=== PATIENT | male | born 1985 | race African-American/Black ===

== ENCOUNTER 2016-12-04 18:21 | Inpatient (IN) | payer OTHER ==
--- NOTE | ~2016-12-04 | EKG ---
PATIENT: BRENNA FORBES UNIT #: [id number] Ventricular Rate: 112 BPM Atrial Rate: 112 BPM P-R Interval: 150 ms QRS Duration: 74 ms Q-T Interval: 308 ms QTC Calculation(Bezet): 420 ms P [place]: 75 degrees Calculated R [place]: 85 degrees Calculated T [place]: 51 degrees Diagnosis Line: Sinus tachycardia Diagnosis Line: Otherwise normal ECG Diagnosis Line: No previous ECGs available Diagnosis Line: Confirmed by AISHWARYA BUCHANAN MD ([id number]) on Diagnosis Line: 12/06/2016 10:21:30 PM INTERPRETING MD: CESARIO
--- NOTE | ~2016-12-04 | CT15 ---
[facility] A Service of [facility] RADIOLOGY TEXT RESULTS PATIENT: BRENNA FORBES LOCATION: [facility] 564-01 : 85 UNIT #: [id number] AGE: [address]: Courtney Galvez MD SEX: M ORDER DR: [id number] [place] [id number] [facility]. [place], [place] [address] [id number] I MR#: [id number] Acc #: [id number] NAME: BRENNA FORBES : 1985 SEX: M STUDY DATE/TIME: 12/04/2016 17:32 UNIT: [facility] ROOM: [facility] STUDY DESCRIPTION: CT Angio Chest Attending Physician: Dieter Cortez M.D. Ordering Physician: Eliane Sargent M.D. Primary Care Physician: No Primary Care Physician MEDICAL IMAGING REPORT This report is preliminary unless electronic signature is present EXAM CT angiogram of the chest INDICATION Severe abdominal pain, hypoglycemia and seizure today. TECHNIQUE Axial CT images were obtained from the thoracic inlet through the symphysis pubis following the administration of intravenous contrast material following this 3-D reformatted images were obtained. This CT exam was performed with one or more of the following radiation dose reduction techniques: automatic control, adjustment of mA and/or kV according to patient size, and iterative reconstruction. FINDINGS Thoracic aorta measures within normal size limits. There is no evidence of dissection. Patient does have a common origin of the brachiocephalic artery and left common carotid artery which is a normal anatomic variant. There is really no significant atherosclerotic plaque. There is no pleural or pericardial effusion. Celiac axis is widely patent as is the superior mesenteric artery. Single renal arteries are identified bilaterally. There is no evidence of dissection involving the abdominal aorta and it is also normal in caliber. Inferior mesenteric artery is widely patent. No flow-limiting stenosis or significant atherosclerotic disease of the patient's common internal or external iliac arteries is identified. The thyroid gland trachea and esophagus appear unremarkable. Mediastinal and hilar lymph nodes do not appear pathologically enlarged. The patient has some dependent atelectasis but the lungs are otherwise clear. [facility] A Service of [facility] RADIOLOGY TEXT RESULTS PATIENT: BRENNA FORBES LOCATION: [facility] 564-01 : 85 UNIT #: [id number] AGE: [address]: Courtney Galvez MD SEX: M ORDER DR: I think the patient probably does have diffuse hepatic steatosis, gallbladder, spleen, stomach, and proximal small bowel all appear normal as are the adrenal glands pancreas and kidneys. No pneumatosis or free air is seen. Images through the abdomen are degraded by some motion artifact. Urinary bladder is within normal limits. A few dystrophic calcifications are seen within the prostate gland. Bowel enhances normally. No free fluid or adenopathy is seen within the abdomen or pelvis. Review of bony windows does not demonstrate any aggressive osseous abnormalities. IMPRESSION No acute intrathoracic or intraabdominal process is identified. This patient's aorta is normal in caliber and there is no evidence of dissection. There is no evidence of acute pulmonary thromboembolus, lungs appear clear with the exception of some mild dependent atelectasis and the bowel enhances normally. Please see the body of the report for any other additional incidental findings Dictated by... Mikaela Israel M.D. THIS IS AN ELECTRONICALLY VERIFIED REPORT Mikaela Israel M.D. at 12/07/2016 1:18 PM AFF/rnr TD: 12/04/2016 23:18 JOB #: [id number] MEDICAL IMAGING REPORT COPY
--- NOTE | ~2016-12-04 | ST ---
Unit #: [id number] #: [id number] Patient: BRENNA FORBES [id number] [address] [address] [id number] I MR#: [id number] NAME: BRENNA FORBES : 1985 SEX: M STUDY DATE/TIME: 12/06/2016 UNIT: [facility] ROOM: 564 STUDY DESCRIPTION: Stress test Attending Physician: Dieter Cortez M.D. Primary Care Physician: No Primary Care Physician CARDIOLOGY REPORT EXAM Cardiolite stress test. FINDINGS Baseline EKG shows normal sinus rhythm with a rate of 82 beats per minute, otherwise, normal. The patient exercised on a treadmill using Willy protocol for 11 minutes and 54 seconds achieving a workload of 12.10 METs. Eighty-six percent of the maximum age-predicted heart rate was reached at 164 beats per minute with a hypertensive blood pressure response. The patient had no complaints of chest pain, palpitations or dizziness. EKG during exercise showed no ST-T wave abnormalities, was noted for occasional premature atrial complex. The test was terminated secondary to achieving target heart rate. IMPRESSION 1. Functional class one with a workload of 12.10 METs, had a fairly good exercise tolerance. 2. Eighty-six percent of the maximum age-predicted heart rate was reached at 164 beats per minute with a hypertensive blood pressure response. 3. The patient had no complaints of chest pain, palpitations or dizziness. 4. EKG during exercise showed no ST-T wave abnormalities. The patient was noted for occasional premature atrial complex. 5. Cardiolite was injected at peak exercise with radionuclide test pending. 6. Please correlate these results with nuclear images. Dictated by... Barbara Sarabia/sherie TD: 12/06/2016 18:13 JOB #: [id number] Unit #: [id number] #: [id number] Patient: BRENNA FORBES CARDIOLOGY REPORT X Nestor Sheppard APRN CARDIOLOGY REPORT
--- NOTE | ~2016-12-04 | CO ---
Unit #: [id number] #: [id number] Patient: BRENNA FORBES [id number] [address] [place], [place] [address] [id number] I MR#: [id number] NAME: BRENNA FORBES ROOM: 564 Age: 31 Sex: M Admission Date: 12/04/2016 : 1985 Attending Physician: Dieter Cortez M.D. CONSULTATION REPORT REASON FOR CONSULTATION Chest pain. HISTORY OF PRESENT ILLNESS This is a 31-year-old male who presented to the emergency room with a complaint of abdominal pain and chest pain. He has a history of polysubstance abuse, where he took himself off liquid, codeine, Percocet, and Lortab, last Wednesday. He has not felt well for the past 2 days and around all day yesterday. Last night, he developed abdominal discomfort with epigastric pain and bilateral anterior chest pain. He describes that this is a dull ache, that is nonradiating to the neck, arm, or jaw. He felt his muscles were achy. He denies shortness of breath, but report nausea. No vomiting or diarrhea. He did not eat and drink for the past 2 days. He had no dizziness, syncope, or near syncope. He came to the emergency room for evaluation, where he was found to have an elevated troponin of 0.13 and that has now peaked at 0.61. CK total elevated at 13,115. His EKG shows no acute ischemic changes. He has risk factors for ischemic heart disease includes nicotine abuse. He has been told to have hypertension while he was incarcerated a few years back. He denies hyperlipidemia, diabetes mellitus, or family history of premature coronary artery disease. He states he is reasonably active where he runs and plays basketball without symptoms. No prior cardiac testing. PAST MEDICAL HISTORY 1. Polysubstance abuse. 2. Active smoker. PAST SURGICAL HISTORY Questionable cyst, removed. SOCIAL HISTORY The patient lives with his mother. He is a manual lathe machinist by trade, not currently working. He smokes 3 black and mild cigars a day. Denies IV drug use. Admits to polysubstance abuse with Lortab, Percocet, and liquid codeine. Denies alcohol use. FAMILY HISTORY Mother is currently living well. Father's history is unknown. ALLERGIES No known drug allergies. HOME MEDICATIONS Unit #: [id number] #: [id number] Patient: BRENNA FORBES No current medications. REVIEW OF SYSTEMS CONSTITUTIONAL: Positive for weakness and fatigue. Reports no weight gain or weight loss. Has generalized body aches. HEENT: No headache. No vision changes. No difficulty with swallowing. Negative for dizziness. CARDIOVASCULAR: Has chest pain as described in the HPI. Denies palpitations. No paroxysmal nocturnal dyspnea or orthopnea. Denies syncope or near syncope. RESPIRATORY: Negative for dyspnea, cough, or hemoptysis. GASTROINTESTINAL: Positive for an abdominal pain. No constipation, melena, or hematemesis. EXTREMITIES: Negative for lower extremity edema. PHYSICAL EXAMINATION VITAL SIGNS: Blood pressure 125/74, heart rate 89, temperature 99.0 from 102.1. BMI of 23. GENERAL: This is a 31-year-old small-framed, male, who is in no acute distress. NEUROLOGIC: He is awake, alert, without focal weaknesses. NECK: Trachea is midline. No thyromegaly. No lymphadenopathy. No jugular distention. HEART: S1, S2. Heart sounds are normal. No murmurs. No rubs or clicks. Regular rate and rhythm. LUNGS: Clear to auscultation. No rales, rhonchi, or wheezing. ABDOMEN: Soft and nontender with bowel sounds are present. No organomegaly. EXTREMITIES: Without leg edema. SKIN: Warm and dry. DIAGNOSTIC STUDIES LABORATORY RESULTS: Glucose 94, BUN 17, creatinine 1.1, sodium 141, potassium 4.1, AST 153, ALT 44, CK total 13,115, CK-MB 64.2, MB index 0.5. Troponin 0.13 to 0.22 to 0.61 to 0.34. BNP 64. TSH 0.28, free T4 is 0.69. Alcohol less than 5. White count 19.4 from 29.1, hemoglobin 14.8, hematocrit 45.0, and platelet count 223. IMAGING STUDIES: 1. CTA of the chest shows mild dependent atelectasis, otherwise normal. 2. CT of the head is normal. CARDIOVASCULAR STUDIES: Electrocardiogram, normal sinus rhythm with a rate of 93 beats per minute, otherwise normal. IMPRESSION 1. Questionable sepsis. 2. Leukocytosis. 3. Recurrent fever. 4. Elevated troponin. 5. Rhabdomyolysis. 6. Questionable muscle spasms/seizure. PLAN Cardiology was consulted for chest pain. The patient has an elevated troponin, but normal troponin of 0.05 six hours after onset of pain which suggests a noncardiac ischemic etiology of troponin leak. Next, we will schedule for exercise Cardiolite stress test in a.m. Next, heparin drip will be discontinued. We will start on Lovenox. Await 2D echocardiogram Unit #: [id number] #: [id number] Patient: BRENNA FORBES for left ventricular systolic function. Dictated by... Judie SarabiaPSangitaRTodd for Óscar Hernandes/vivienne TD: 12/05/2016 19:39 JOB #: [id number] CC: Daniel Abernathy M.D. CONSULTATION REPORT X Nestor Sheppard APRN X CONSULTATION REPORT
--- NOTE | ~2016-12-04 | HP ---
Unit #: [id number] #: [id number] Patient: BRENNA FORBES [id number] [address] [place], [place] [address] [id number] I MR#: [id number] NAME: BRENNA FORBES ROOM: 564 Age: 31 Sex: M Admission Date: 12/04/2016 : 1985 Attending Physician: Dieter Cortez M.D. Primary Care Physician: Primary Care Physician No HISTORY AND PHYSICAL CHIEF COMPLAINT Abdominal pain, detox from Percocet and codeine. HISTORY OF PRESENT ILLNESS This is a 31-year-old gentleman, who has been found on the floor by girlfriend, as per girlfriend, who is at the bedside, as she found him on the floor, shaking, foam coming from his mouth and EMS was called, and the patient was brought to the emergency room. He was found to be tachycardic, 143, temperature febrile, 102.1, blood pressure 125/87. On further workup on the evaluation found to be white count 29,000, ammonia level 348, and AST 66, ALT 72, and increased troponin 0.22, and after questioning he is now alert and awake. He is telling me that he bought Percocet tablets and codeine syrup from the street and he has been using for the last three months, not using since Wednesday and today he said that he had been having some hallucinations, but denied chest pain, and he has also been having abdominal pain earlier today. PAST MEDICAL HISTORY Unremarkable. PAST SURGICAL HISTORY Unremarkable. HOME MEDICATIONS He does not take any medication. SOCIAL HISTORY He smokes one pack day. He used codeine and Percocet tablets from the street, buy from the streets. ALLERGIES No known drug allergies. PHYSICAL EXAMINATION GENERAL: Middle-aged male lying in the bed comfortably, currently not in any distress. He is alert, awake, and oriented x2, at this time, not in any distress. VITAL SIGNS: His current vitals are the following, temperature is 100.2, heart rate 143, repeat one is 110, blood pressure 125/87. HEENT EXAMINATION: Pupils equal reactive to light and accommodation. Head: Normocephalic and atraumatic. NECK: Supple. No jugular venous distention. HEART: S1 and S2, regular rate and rhythm, and tachycardia. ABDOMEN: Soft, nontender, and nondistended. Bowel sounds are positive. Unit #: [id number] #: [id number] Patient: BRENNA FORBES EXTREMITIES: Inspection normal. No cyanosis, no clubbing, or no edema. NEUROLOGIC: No focal neurologic deficit. DIAGNOSTIC STUDIES LABORATORY: Laboratory workup is the following, his troponin 0.13, ABG, pH 7.32, O2 91, CO2 30. Ammonia level is 348. INR is 1. White count is 29, hemoglobin is 17, and hematocrit is 53, platelets 270, BNP 64. Sodium 140, potassium 3.7, glucose 69, BUN 17, creatinine 1.8, AST 66, ALT 72, CK total 1860, lipase 19, troponin 0.22. Urinalysis is unremarkable. Lactic acid 2.6. Urine drug screen positive for benzodiazepines and opiates. IMAGING: CT chest and CT of the abdomen is unremarkable. ASSESSMENT/PLAN 1. Opiate withdrawal. 2. Mild rhabdomyolysis. 3. Leukocytosis. 4. Increased troponin, will rule out myocarditis, will schedule 2D echo and ask cardiology to evaluate. 5. Ammonia level. 6. Abnormal LFT. 7. DVT prophylaxis, place the patient on SCDs. Dictated by Óscar Garrett/bailee TD: 12/05/2016 10:38 JOB #: [id number] HISTORY AND PHYSICAL X X HISTORY AND PHYSICAL
--- NOTE | ~2016-12-04 | EKG ---
PATIENT: BRENNA FORBES UNIT #: [id number] Ventricular Rate: 84 BPM Atrial Rate: 84 BPM P-R Interval: 154 ms QRS Duration: 80 ms Q-T Interval: 336 ms QTC Calculation(Bezet): 397 ms P [place]: 65 degrees Calculated R [place]: 63 degrees Calculated T [place]: 27 degrees Diagnosis Line: Normal sinus rhythm Diagnosis Line: Normal ECG Diagnosis Line: When compared with ECG of 05-DEC-2016 05:50, Diagnosis Line: (unconfirmed) Diagnosis Line: No significant change was found Diagnosis Line: Confirmed by AISHWARYA BUCHANAN MD ([id number]) on Diagnosis Line: 12/06/2016 10:44:11 PM INTERPRETING MD: CESARIO
--- NOTE | ~2016-12-04 | DS ---
Unit #: [id number] #: [id number] Patient: BRENNA PERALES [id number] [address] [address] [id number] I MR#: [id number] NAME: BRENNA PERALES ROOM: 564 Age: 31 Sex: M Admission Date: 12/04/2016 : 1985 Discharge Date: 12/07/2016 Attending Physician: Courtney Galvez M.D. Primary Care Physician: No Primary Care Physician DISCHARGE SUMMARY PRINCIPAL DIAGNOSES 1. Acute kidney injury secondary to rhabdomyolysis. Discharge creatinine 0.7. 2. Rhabdomyolysis, nontraumatic. 3. Elevated troponin secondary to rhabdomyolysis. 4. Severe dehydration. 5. Toxic metabolic encephalopathy secondary to polysubstance withdrawal. 6. Cocaine and opiate abuse with subsequent withdrawal. 7. Hyperammonemia, resolved. 8. Acute diastolic congestive heart failure without exacerbation. 9. Hypertension. 10. Reactive leukocytosis. 11. Transaminitis secondary to acute rhabdomyolysis. CONSULTANTS Dr. Abernathy, cardiology. DIAGNOSTIC STUDIES CARDIOVASCULAR: Cardiolite stress test, which was negative. IMAGING: CT of the head without contrast on December 04, 2016, which was negative. CT angiogram of the chest on December 04, 2016 with no acute abnormality. No evidence of PE. Bilateral lower extremity venous Doppler, which was negative for DVT. Chest x-ray on December 05, 2016 which was negative. CLINICAL HISTORY AND HOSPITAL COURSE Mr. Perales is a 31-year-old male brought to the emergency department confused and found down on the floor at home. The patient was found to have a temperature of 102.1 upon presentation and was also tachycardic. He was also found to have an elevated white blood cell count of 29,000 and an ammonia level of 348, although it was questionable whether this is accurate. CPK level was initially 1,860. The patient was subsequently admitted. The patient was placed on IV hydration, and mental status subsequently resolved. White blood cell count also dramatically went down, and there was no source of infection ever found. There were concerns per EMS that the patient may have had seizure, and he received Keppra in the emergency department, but he has had no seizure-like activity here, and I suspect Unit #: [id number] #: [id number] Patient: BRENNA PERALES this was not seizure, and no long-term seizure medication will be given. In regard to the patient's elevated CPK, again, initial readings were approximately 1,800 but then dramatically increased to as high as 13,000. The patient was maintained on IV fluids, and on day of discharge CK still remains elevated at 6,100, but the patient is improving rather rapidly and agrees to push fluids aggressively at home. Upon presentation the patient also was found to have an elevated troponin level of 0.22. It peaked as high as 0.[address] Abernathy was consulted, and the patient was placed on beta-enoch and therapeutic Lovenox. He underwent stress test, the exercise portion of which is negative, and the Cardiolite portion is currently pending but I believe is negative. The patient is awake, alert, has had no more fever. No signs of infection and clinically looks significantly improved. He will be discharged home. DISCHARGE CONDITION Stable. DISCHARGE STATUS Discharge to home. DISCHARGE MEDICATIONS Norvasc 5 mg p.o. daily. DISCHARGE INSTRUCTIONS Patient was instructed to really push fluids at home for the next 2-3 days. He can increase his activity as tolerated, to refrain from any further illicit drug use. FOLLOW-UP Patient will establish with a primary care physician and follow up in 2-3 weeks. He needs a repeat evaluation of blood pressure at that time. Dictated by... Courtney Galvez M.D. ANA/vandana TD: 12/08/2016 11:50 JOB #: [id number] DISCHARGE SUMMARY X Courtney Galvez MD X DISCHARGE SUMMARY
--- NOTE | ~2016-12-04 | EKG ---
PATIENT: BRENNA FORBES UNIT #: [id number] Ventricular Rate: 100 BPM Atrial Rate: 100 BPM P-R Interval: 172 ms QRS Duration: 92 ms Q-T Interval: 326 ms QTC Calculation(Bezet): 420 ms P [place]: 76 degrees Calculated R [place]: 89 degrees Calculated T [place]: 60 degrees Diagnosis Line: Sinus rhythm Diagnosis Line: Nonspecific ST abnormality consider pericarditis Diagnosis Line: Abnormal ECG Diagnosis Line: When compared with ECG of 04-DEC-2016 16:57, Diagnosis Line: (unconfirmed) Diagnosis Line: T wave amplitude has decreased in Anterior leads Diagnosis Line: Confirmed by AISHWARYA BUCHANAN MD ([id number]) on Diagnosis Line: 12/06/2016 10:23:46 PM INTERPRETING MD: CESARIO
--- NOTE | ~2016-12-04 | EKG ---
PATIENT: BRENNA FORBES UNIT #: [id number] Ventricular Rate: 93 BPM Atrial Rate: 93 BPM P-R Interval: 148 ms QRS Duration: 76 ms Q-T Interval: 338 ms QTC Calculation(Bezet): 420 ms P [place]: 65 degrees Calculated R [place]: 53 degrees Calculated T [place]: 37 degrees Diagnosis Line: Normal sinus rhythm Diagnosis Line: Normal ECG Diagnosis Line: When compared with ECG of 04-DEC-2016 18:31, Diagnosis Line: (unconfirmed) Diagnosis Line: ST less elevated in Lateral leads Diagnosis Line: T wave amplitude has increased in Anterior leads Diagnosis Line: Confirmed by AISHWARYA BUCHANAN MD ([id number]) on Diagnosis Line: 12/06/2016 10:38:21 PM INTERPRETING MD: CESARIO
--- NOTE | ~2016-12-04 | TH ---
Unit #: [id number] #: [id number] Patient: BRENNA FORBES [id number] [address] [address] [id number] I MR#: [id number] NAME: BRENNA FORBES : 1985 SEX: M STUDY DATE/TIME: 12/07/2016 UNIT: [facility] ROOM: 564 STUDY DESCRIPTION: Attending Physician: Courtney Galvez M.D. Primary Care Physician: No Primary Care Physician CARDIOLOGY REPORT EXAM Exercise Cardiolite stress test, nuclear portion. PROCEDURE Using technetium 99m labeled Cardiolite, rest and stress SPECT images were obtained. Multiple SPECT images were obtained in various views including horizontal and vertical long axis and short axis views of the left ventricle. Images were obtained by gated SPECT method. The patient was administered 9.9 mCi of Cardiolite at rest. The patient was administered 25.3 mCi of Cardiolite at peak exercise. Total exercise time is 11 minutes and 54 seconds. On the stress images, there is normal perfusion noted. The rest images showed normal perfusion. Comparing rest and stress images, there is no stress-induced ischemia noted. The left ventricular ejection fraction is calculated to be 61%. There is no focal wall motion abnormality seen. CONCLUSION 1. No stress-induced ischemia noted. 2. The left ventricular ejection fraction is calculated to be 61%. 3. There is no focal wall motion abnormality seen. 4. Normal exercise Cardiolite stress test. Dictated by... Óscar Goodson TD: 12/07/2016 16:24 JOB #: [id number] CARDIOLOGY REPORT X Ct Lilly MD <ELECTRONICALLY SIGNED> 05/01/17 1428 CARDIOLOGY REPORT
--- NOTE | ~2016-12-04 | CR63 ---
[facility] A Service of [facility] RADIOLOGY TEXT RESULTS PATIENT: BRENNA FORBES LOCATION: [facility] 564-01 : [birth year] UNIT #: [id number] AGE: [address]: Dieter Cortez MD SEX: M ORDER DR: [id number] [facility] [address] [facility]. [place], [place] [address] [id number] I MR#: [id number] Acc #: [id number] NAME: BRENNA FORBES : 1985 SEX: M STUDY DATE/TIME: 12/05/2016 10:28 UNIT: [facility] ROOM: [facility] STUDY DESCRIPTION: CR Chest 2 View Attending Physician: Dieter Cortez M.D. Ordering Physician: Daniel Abernathy M.D. Primary Care Physician: Primary Care Physician No MEDICAL IMAGING REPORT This report is preliminary unless electronic signature is present EXAM PA and lateral chest 2 views date of study 12/05/2016 HISTORY Short of air since last night. FINDINGS PA and lateral examination of the chest upright shows a good expansion of the parenchyma with a normal distribution of the pulmonary vascularity. There is no indication of congestion, effusion, infiltrate, tumor, or nodular density. The pleural reflections and diaphragmatic contours are normal. The cardiac silhouette and mediastinal anatomy is within normal limits. IMPRESSION Normal chest. Dictated by... Cam Lowery M.D. THIS IS AN ELECTRONICALLY VERIFIED REPORT Cam Lowery M.D. at 12/06/2016 9:52 AM JARRETT/flex TD: 12/05/2016 14:22 JOB #: [id number] MEDICAL IMAGING REPORT COPY
--- NOTE | ~2016-12-04 | US84 ---
[id number] [facility] [address] [place], [place] [address] [id number] MR#: [id number] Acc #: [id number] NAME: BRENNA FORBES : 1985 SEX: M STUDY DATE/TIME: 12/05/2016 10:07 UNIT: [facility] ROOM: 564 STUDY DESCRIPTION: US LE Veins Complete Jose Cruz Stdy Attending Physician: Dieter Cortez M.D. Ordering Physician: Dede Kaufman M.D. MEDICAL IMAGING REPORT This report is preliminary unless electronic signature is present EXAM Venous Doppler ultrasound, both legs, 12/05/2016. HISTORY 31-year-old male with 3-day history of shortness of air. Evaluation for lower extremity DVT due to consideration of pulmonary embolism. TECHNIQUE Venous ultrasound examination of both lower extremities was performed using grayscale, spectral Doppler and color flow Doppler imaging. FINDINGS The examination is negative. There is no evidence of deep venous thrombus from the groin to the lower calf bilaterally. Visualized greater saphenous veins are also patent. IMPRESSION Negative examination. No evidence of lower extremity deep venous thrombosis. Dictated by... Ricky Castellanos M.D. THIS IS AN ELECTRONICALLY VERIFIED REPORT Ricky Castellanos M.D. at 12/05/2016 3:01 PM JOAN/gema TD: 12/05/2016 14:52 JOB #: [id number] MEDICAL IMAGING REPORT COPY
--- NOTE | ~2016-12-04 | CT71 ---
[facility] A Service of [facility] RADIOLOGY TEXT RESULTS PATIENT: BRENNA FORBES LOCATION: [facility] [id number] : [birth year] UNIT #: [id number] AGE: [address]: Dieter Cortez MD SEX: M ORDER DR: [id number] [facility]. [place], [place] [address] [id number] MR#: [id number] Acc #: [id number] NAME: BRENNA FORBES : 1985 SEX: M STUDY DATE/TIME: 12/04/2016 17:23 UNIT: [facility] ROOM: [facility] STUDY DESCRIPTION: CT Head Wo Contrast Attending Physician: Dieter Cortez M.D. Ordering Physician: Eliane Sargent M.D. Primary Care Physician: No Primary Care Physician MEDICAL IMAGING REPORT This report is preliminary unless electronic signature is present EXAM CT head, noncontrast, 12/04/2016. HISTORY A 31-year-old male in the ED with acute mental status changes after a reported seizure. Hypoglycemia. Possible narcotic withdrawal. He also notes severe abdomen pain. TECHNIQUE This CT exam was performed with one or more of the following radiation dose reduction techniques: automatic exposure control, adjustment of mA and/or kV according to patient size, and iterative reconstruction. CT examination of the head without IV contrast. FINDINGS The examination is negative. No evidence of intracranial hemorrhage, mass, mass effect, cerebral edema, hydrocephalus or additional abnormality. IMPRESSION Negative noncontrast head CT. Dictated by... Ricky Castellanos M.D. THIS IS AN ELECTRONICALLY VERIFIED REPORT Ricky Castellanos M.D. at 12/05/2016 3:01 PM JOAN/weston TD: 12/04/2016 23:27 JOB #: [id number] [facility] A Service of [facility] RADIOLOGY TEXT RESULTS PATIENT: BRENNA FORBES LOCATION: [facility] : [birth year] UNIT #: [id number] AGE: [address]: Dieter Cortez MD SEX: M ORDER DR: MEDICAL IMAGING REPORT COPY
[2016-12-04 16:48] LABS: BASOPHIL# 0.1 X10e3 (0-0.3); BASOPHIL% 0.3 % (0-2.5); HEMATOCRIT 53.3 % (38.0-50.0); HEMOGLOBIN 17.2 gm/dL (13.0-16.0); LYMPHOCYTE# 2.2 X10e3 (1.0-3.5); LYMPHOCYTE% 7.6 % (17.0-45.0); MEAN CELL VOLUME 88.5 FL (83-96); MEAN CORPUSCULAR HEMOGLOBIN 28.5 PG (28-34); MEAN CORPUSCULAR HGB CONC 32.2 g/dL (30-36); MEAN PLATELET VOLUME 7.4 FL (6.5-11.5); MONOCYTE# 2.3 X10e3 (0-1.0); MONOCYTE% 7.9 % (3.0-12.0); NEUTROPHIL# 24.5 X10e3 (1.5-7.1); NEUTROPHIL% 84.2 % (40-75); PLATELET COUNT 270 X10e3 (140-420); RED BLOOD COUNT 6.02 X10e (3.90-5.60); RED CELL DISTRIBUTION WIDTH 14.5 % (11.0-15.5); WHITE BLOOD COUNT 29.1 X10e3 (4.0-10.5)
[2016-12-04 16:52] LABS: POC - CKMB 21.9 ng/mL (0.0-7.9); POC - TROPONIN 0.13 ng/mL (<=0.05)
[2016-12-04 17:00] LABS: ARTERIAL BLD GAS O2 SATURATION 94.4 % (90.0-100.0); ARTERIAL BLOOD GAS CARBOXY HB 0.3 %sat (0.0-9.0); ARTERIAL BLOOD GAS HCO3 15.7 mmol/L; ARTERIAL BLOOD GAS MET HB 1.1 %sat (0.0-2.0); ARTERIAL BLOOD GAS PCO2 30.3 mmHg (35.0-45.0); ARTERIAL BLOOD GAS PO2 91.5 mmHg (80.0-100); ARTERIAL BLOOD GAS pH 7.322 (7.350-7.450)
[2016-12-04 17:01] LABS: ARTERIAL BLOOD GAS ALLEN TEST NORMAL; ARTERIAL BLOOD GAS ART SITE LEFT RADIAL; ARTERIAL BLOOD GAS DELIVERY NASAL CANNULA; ARTERIAL DRAW? YES
[2016-12-04 17:02] LABS: PARTIAL THROMBOPLASTIN TIME 26.1 SECONDS (23.5-31.3); PROTHROMBIN TIME (PATIENT) 10.5 SECONDS (9.6-11.5)
[2016-12-04 17:20] LABS: DIFF IND YES
[2016-12-04 17:23] LABS: DIFFERENTIAL COMMENT N; PLATELET ESTIMATE NORMAL (NORMAL); RBC NORMAL YES
[2016-12-04 17:35] LABS: POC - CREATININE 1.24 mg/dL (0.64-1.27); POC - GFR >60.0 mL/min (>60)
[2016-12-04 18:04] LABS: ALBUMIN SERUM 5.5 g/dL (3.5-5.0); ALCOHOL BLOOD <5 mg/dL (0); ALKALINE PHOSPHATASE 94 U/L (32-92); ALT (SGPT) 72 U/L (10-40); AST (SGOT) 66 U/L (10-42); BILIRUBIN, DIRECT 0.1 mg/dL (0.0-0.2); BILIRUBIN,INDIRECT 0.9 mg/dL (0.0-0.9); BLOOD UREA NITROGEN 17 mg/dL (9-23); BUN/CREATININE RATIO 9.44; CALCIUM SERUM 10.3 mg/dL (8.4-10.2); CARBON DIOXIDE 11 mmol/L (22-31); CHLORIDE 101 mmol/L (100-111); CPK (CREATINE PHOSPHOKINASE) 1860 IU/L (36-174); CREATININE SERUM 1.8 mg/dL (0.6-1.4); GLOM FILT RATE Estimated 56.9 mL/min (>60); GLUCOSE FASTING 69 mg/dL (70-110); LIPASE 19 U/L (22-51); POTASSIUM 3.7 mmol/L (3.5-5.1); PROTEIN TOTAL SERUM 8.9 g/dL (6.0-8.3); SODIUM 140 mmol/L (135-145)
[2016-12-04 18:06] LABS: POC - TROPONIN 0.22 ng/mL (<=0.05)
[2016-12-04 18:15] LABS: URINE SOURCE CLEAN CATCH
[~2016-12-04 18:21] MED LIST: FIORICET 50-321 EACH PO
[2016-12-04 18:33] LABS: URINE APPEARANCE CLEAR; URINE BILIRUBIN NEG (NEG); URINE BLOOD 3+ (NEG); URINE COLOR YELLOW; URINE GLUCOSE NEG (NEG); URINE KETONE 2+ (NEG); URINE LEUKOCYTE ESTERASE NEG (NEG); URINE NITRATE NEG (NEG); URINE PH 5.5 (5-8); URINE PROTEIN 3+ (NEG); URINE SPECIFIC GRAVITY 1.025 (1.003-1.035); URINE UROBILINOGEN 0.2 MG/DL (NEG)
[2016-12-04 18:35] LABS: URBCS1 AUWI 100-200 /[HPF] (0-2); URINE BACTERIA AUWI NEG (NEGATIVE); URINE SQUAMOUS EPITHELIAL CELL NONE SEEN /[HPF]; UWBCS1 AUWI 0-2 (0-5)
[2016-12-04 18:42] LABS: CULTURE INDICATED? NO; URINE YEAST PRESENT
[2016-12-04 18:43] LABS: AMPHETAMINE NEG (NEG); BARBITURATES NEG (NEG); BENZODIAZEPINES POS (NEG); COCAINE NEG (NEG); MARIJUANA NEG (NEG); OPIATES POS (NEG); TRICYCLIC ANTIDEPRESSANTS NEG (NEG); U METHADONE NEG (NEG)
[2016-12-04] MEDS ORDERED: NO MEDICATIONS (19:20)
[2016-12-05 00:34] LABS: %MB 0.5 % (0.0-4.0); MB 57.3 ng/ml
[2016-12-05 06:32] LABS: BASOPHIL% 0.2 % (0-2.5); LYMPHOCYTE# 2.6 X10e3 (1.0-3.5); LYMPHOCYTE% 13.3 % (17.0-45.0); MEAN CELL VOLUME 87.8 FL (83-96); MEAN CORPUSCULAR HEMOGLOBIN 28.9 PG (28-34); MEAN CORPUSCULAR HGB CONC 32.9 g/dL (30-36); MEAN PLATELET VOLUME 7.2 FL (6.5-11.5); MONOCYTE# 2.3 X10e3 (0-1.0); MONOCYTE% 11.8 % (3.0-12.0); NEUTROPHIL# 14.5 X10e3 (1.5-7.1); NEUTROPHIL% 74.7 % (40-75); PLATELET COUNT 223 X10e3 (140-420); RED BLOOD COUNT 5.12 X10e (3.90-5.60); RED CELL DISTRIBUTION WIDTH 14.2 % (11.0-15.5); WHITE BLOOD COUNT 19.4 X10e3 (4.0-10.5)
[2016-12-05 06:33] LABS: DIFF IND NO; HEMOGLOBIN 14.8 gm/dL (13.0-16.0)
[2016-12-05 07:57] LABS: ALKALINE PHOSPHATASE 67 U/L (32-92); ALT (SGPT) 44 U/L (10-40); AST (SGOT) 153 U/L (10-42); BILIRUBIN,TOTAL 0.9 mg/dL (0.2-2.0); BLOOD UREA NITROGEN 17 mg/dL (9-23); BUN/CREATININE RATIO 15.45; CARBON DIOXIDE 18 mmol/L (22-31); CHLORIDE 113 mmol/L (100-111); CREATININE SERUM 1.1 mg/dL (0.6-1.4); GLOM FILT RATE Estimated ABOVE60 mL/min (>60); GLUCOSE FASTING 94 mg/dL (70-110); POTASSIUM 4.1 mmol/L (3.5-5.1); PROTEIN TOTAL SERUM 6.9 g/dL (6.0-8.3); SODIUM 141 mmol/L (135-145)
[2016-12-05 07:58] LABS: CK TOTAL 13115 IU/L (36-174)
[2016-12-05 08:15] LABS: %MB 0.5 % (0.0-4.0); MB 64.2 ng/ml
[2016-12-05 10:03] LABS: FREE T3 2.3 pg/mL (2.5-3.9)
[2016-12-05 10:05] LABS: FREE THYROXIN (T4) 0.69 ng/dL (0.58-1.64)
[2016-12-06 05:32] LABS: HEMATOCRIT 43.3 % (38.0-50.0); HEMOGLOBIN 14.1 gm/dL (13.0-16.0); MEAN CELL VOLUME 87.6 FL (83-96); MEAN CORPUSCULAR HEMOGLOBIN 28.6 PG (28-34); MEAN CORPUSCULAR HGB CONC 32.6 g/dL (30-36); MEAN PLATELET VOLUME 7.2 FL (6.5-11.5); RED BLOOD COUNT 4.94 X10e (3.90-5.60); RED CELL DISTRIBUTION WIDTH 14.3 % (11.0-15.5)
[2016-12-06 06:53] LABS: ALBUMIN SERUM 3.7 g/dL (3.5-5.0); ALKALINE PHOSPHATASE 57 U/L (32-92); ALT (SGPT) 66 U/L (10-40); AST (SGOT) 201 U/L (10-42); BILIRUBIN,TOTAL 0.7 mg/dL (0.2-2.0); BLOOD UREA NITROGEN 13 mg/dL (9-23); BUN/CREATININE RATIO 16.25; CALCIUM SERUM 9.3 mg/dL (8.4-10.2); CARBON DIOXIDE 23 mmol/L (22-31); CHLORIDE 110 mmol/L (100-111); CPK (CREATINE PHOSPHOKINASE) 12533 IU/L (36-174); CREATININE SERUM 0.8 mg/dL (0.6-1.4); GLOM FILT RATE Estimated ABOVE60 mL/min (>60); GLUCOSE FASTING 99 mg/dL (70-110); PHOSPHOROUS 3.3 mg/dL (2.5-4.6); POTASSIUM 4.2 mmol/L (3.5-5.1); PROTEIN TOTAL SERUM 6.1 g/dL (6.0-8.3); SODIUM 141 mmol/L (135-145)
[2016-12-07 05:04] LABS: BASOPHIL% 0.4 % (0-2.5); DIFF IND NO; EOSINOPHIL# 0.1 X10e3 (0-0.7); EOSINOPHIL% 0.7 % (0.0-7.0); HEMATOCRIT 41.9 % (38.0-50.0); HEMOGLOBIN 13.9 gm/dL (13.0-16.0); LYMPHOCYTE# 3.3 X10e3 (1.0-3.5); LYMPHOCYTE% 33.3 % (17.0-45.0); MEAN CELL VOLUME 87.7 FL (83-96); MEAN CORPUSCULAR HEMOGLOBIN 29.1 PG (28-34); MEAN CORPUSCULAR HGB CONC 33.2 g/dL (30-36); MEAN PLATELET VOLUME 6.8 FL (6.5-11.5); MONOCYTE# 0.8 X10e3 (0-1.0); MONOCYTE% 8.5 % (3.0-12.0); NEUTROPHIL# 5.7 X10e3 (1.5-7.1); NEUTROPHIL% 57.1 % (40-75); PLATELET COUNT 186 X10e3 (140-420); RED BLOOD COUNT 4.77 X10e (3.90-5.60); WHITE BLOOD COUNT 9.9 X10e3 (4.0-10.5)
[2016-12-07 06:51] LABS: BLOOD UREA NITROGEN 11 mg/dL (9-23); BUN/CREATININE RATIO 15.71; CALCIUM SERUM 8.8 mg/dL (8.4-10.2); CARBON DIOXIDE 26 mmol/L (22-31); CHLORIDE 111 mmol/L (100-111); CPK (CREATINE PHOSPHOKINASE) 6109 IU/L (36-174); CREATININE SERUM 0.7 mg/dL (0.6-1.4); GLOM FILT RATE Estimated ABOVE60 mL/min (>60); GLUCOSE FASTING 94 mg/dL (70-110); POTASSIUM 3.7 mmol/L (3.5-5.1); SODIUM 142 mmol/L (135-145)
[2016-12-07] MEDS ORDERED: NORVASC PO (09:05)
== END 2016-12-07 09:31 | disposition home or self-care (01) | DRG 896 ==
LOC: CED 18:21 → CEDOF 20:00 → C5C 21:59
PROVIDERS: Internal Medicine; Student in an Organized Health Care Education/Training Program
PROC: B32TYZZ Computerized Tomography (CT Scan) of Left Pulmonary Artery using Other Contrast (ICD-10-PCS; 2016-12-04)
PROC: B32SYZZ Computerized Tomography (CT Scan) of Right Pulmonary Artery using Other Contrast (ICD-10-PCS; 2016-12-04)
PROC: B246YZZ Ultrasonography of Right and Left Heart using Other Contrast (ICD-10-PCS; principal; 2016-12-05)
DX: F11.23 Opioid dependence with withdrawal (principal); G92 Toxic encephalopathy; I50.31 Acute diastolic (congestive) heart failure; E72.20 Disorder of urea cycle metabolism, unspecified; N17.9 Acute kidney failure, unspecified; M62.82 Rhabdomyolysis; I11.0 Hypertensive heart disease with heart failure; E86.0 Dehydration; F17.210 Nicotine dependence, cigarettes, uncomplicated; F14.23 Cocaine dependence with withdrawal
CPT/HCPCS: 36600; 70450; 71020; 71275; 74174; 78452; 80048; 80053; 80076; 80307; 81003; 82140; 82550; 82553; 82565; 82803; 82947; 83605; 83690; 83735; 83880; 84100; 84439; 84443; 84481; 84484; 85025; 85027; 85610; 85730; 93005; 93017; 93306; 93970; 96361; 96374; 96375; 99291; A9500; G0480; J1644; J1650; J1953; J2060; J2405; J2785; Q9967